=== PATIENT | female | born 1960 | race Caucasian/White ===

== ENCOUNTER 2018-12-11 23:59 | Emergency (ER) | payer SELFPAY ==
[2018-12-12 00:54] LABS: #Basophils 0.1 thou/uL (0.0-0.2); #Eosinphils 0.2 thou/uL (0.0-0.7); #Monocytes 0.4 thou/uL (0.11-0.59); #Neutrophils 4.7 thou/uL (1.40-6.50); %Basophils 0.9 % (0.0-1.0); %Eosinophils 3.4 % (0.0-10.0); %Monocytes 6.7 % (0.0-10.0); %Neutrophils 72.9 % (42.0-75.0); Hemoglobin 12.6 g/dL (12.0-16.0); Mean Corpuscular Hemoglobin 30.8 pg (27.0-31.0); Mean Corpuscular Volume 96.2 fL (78.0-98.0); Mean Platelet Volume 7.9 fL (7.4-10.4); Platelet Count 236 thou/uL (130-400); Red Blood Cell (RBC) Count 4.09 mill/uL (4.20-5.40); White Blood Cell (WBC) Count 6.5 thou/uL (4.8-10.8)
[2018-12-12 01:02] LABS: Prothrombin Time 13.6 SEC (12.0-14.7)
[2018-12-12 01:10] LABS: ALT (SGPT) 27 U/L (8-55); AST (SGOT) 26 U/L (5-34); Albumin 4.1 g/dL (3.5-5.0); Alcohol 265 mg/dL (Less than 10); Alkaline Phosphatase 57 U/L (40-110); Anion Gap 18 mmol/L (10-20); BUN (Urea Nitrogen) 9 mg/dL (9.8-20.1); Bilirubin, Total 0.4 mg/dL (0.2-1.2); Calc. Creatinine Clearance 0 mL/min (70-130); Calcium 8.6 mg/dL (7.8-10.44); Carbon Dioxide 20 mmol/L (22-29); Chloride 94 mmol/L (98-107); Estimated GFR-MDRD 81; Globulin 3.4 g/dL (2.4-3.5); Glucose 125 mg/dL (70-105); Potassium 3.6 mmol/L (3.5-5.1); Protein, Total 7.5 g/dL (6.0-8.3); Sodium 128 mmol/L (136-145)
[2018-12-12] MEDS ORDERED: Adacel (T-DAP) 0.5 ML SYRINGE ONE (02:43)
[2018-12-12] MEDS ORDERED: CEFAZOLIN 1 GM VIAL ONE (03:20)
[2018-12-12] MEDS ORDERED: Sodium Chloride 0.9% 100 ML ONE (03:20)
--- NOTE | 2018-12-12 07:21 | CT ---
PRELIMINARY REPORT/[facility]/EMERGENCY AFTER HOURS PROCEDURE: PROCEDURE INFORMATION: Exam: CT Maxillofacial Without Contrast Exam date and time: 12/12/2018 12:51 AM Clinical history: 58 years old, female; Injury or trauma; Fall; Initial encounter; Blunt trauma (cont usions or hematomas); Maxilla; Injury date: 12/12/2018 TECHNIQUE: Imaging protocol: Computed tomography images of the face without contrast. Radiation optimization: All CT scans at this facility use at least one of these dose optimization anthony hniques: automated exposure control; mA and/or kV adjustment per patient size (includes targeted exam s where dose is matched to clinical indication); or iterative reconstruction. COMPARISON: No relevant prior studies available. FINDINGS: Orbits: Orbital contents appear intact/unremarkable. Sinuses: Very mild mucosal thickening in the inferior left maxillary sinus. Included paranasal sinuses otherwise appear essentially clear. Bones/joints: Mildly displaced fracture of the left side of the nasal bone. No definite acute fracture of the nasal septum. No definite evidence of other acute facial bone fracture. IMPRESSION: 1. Mildly displaced fracture of the left side of the nasal bone. 2. No definite evidence of other acute facial bone fracture. 3. Other findings discussed above. Thank you for allowing us to participate in the care of your patient. Dictated and Authenticated by: Woo Dia MD 12/12/2018 2:36 AM Central Time ([place] & [place]) FINAL REPORT EMERGENCY AFTER HOURS CT FACE WITHOUT CONTRAST: Date: 12/12/18 FINDINGS/IMPRESSION: I agree with the findings and impression given in the preliminary report per [facility] physician. Left mona al bone fracture.
--- NOTE | 2018-12-12 07:23 | CT ---
PRELIMINARY REPORT/[facility]/EMERGENCY AFTER HOURS PROCEDURE: Addendum created by Woo Dia MD on 12/12/2018 2:25 AM Central Time ([place] & [place]) Report of this grant e was discussed with EASTON Parker at 2:24 AM CDT, 12/12/2018. The findings were acknowledged and un derstood. Initial Report created on 12/12/2018 2:20 AM Central Time ([place] & [place]) PROCEDURE INFORMATION: Exam: CT Head without contrast Exam date and time: 12/12/2018 12:56 AM Clinical history: 58 years old, female; Pain and injury or trauma; Fall; Initial encounter; Blunt tra tresa (contusions or hematomas); Headache; Injury date: 12/12/2018; Injury details: Fell off couch TECHNIQUE: Imaging protocol: Computed tomography of the head without contrast. Radiation optimization: All CT scans at this facility use at least one of these dose optimization anthony hniques: automated exposure control; mA and/or kV adjustment per patient size (includes targeted exam s where dose is matched to clinical indication); or iterative reconstruction. COMPARISON: No relevant prior studies available. FINDINGS: Brain: Suspect a very small amount of acute subdural blood layering along the right tentorium. This i s a subtle asymmetric finding, only measuring about 1-2 mm in thickness. Followup may be helpful, as clinically directed. No significant mass effect or midline shift. No other definite acute intracranial hemorrhage. 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 No definite acute infarct by CT. Ventricles: Ventricle size is normal for age. Bones/joints: Suspect an acute left-sided nasal bone fracture. Please see subsequent CT Facial Bone r eport for complete evaluation of the facial bones. No other definite acute skull fracture. Sinuses: Included paranasal sinuses are essentially clear. Mastoid air cells: No significant acute finding. IMPRESSION: 1. Suspect a very small amount of acute subdural blood layering along the right tentorium, details ab ove. 2. No significant mass effect or midline shift. 3. 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 4. Nasal bone fracture, see above. 5. Please see subsequent CT Facial Bone report for complete evaluation of the facial bones. 6. Other findings discussed above. Thank you for allowing us to participate in the care of your patient. Dictated and Authenticated by: Woo Dia MD 12/12/2018 2:20 AM Central Time ([place] & [place]) FINAL REPORT EMERGENCY AFTER HOURS CT BRAIN WITHOUT CONTRAST: FINDINGS/IMPRESSION: I agree with the findings and impression given in the preliminary report per [facility] physician. There is asymmetry on the right aspect of the tentorium. This could represent asymmetric thickening of the te ntorium versus a small amount of subdural blood. A follow-up CT or MRI should be performed.
--- NOTE | 2018-12-12 07:24 | CT ---
PRELIMINARY REPORT/[facility]/EMERGENCY AFTER HOURS PROCEDURE: PROCEDURE INFORMATION: Exam: CT Cervical Spine Without Contrast Exam date and time: 12/12/2018 1:00 AM Clinical history: 58 years old, female; Neck pain; Patient HX: Fell off couch TECHNIQUE: Imaging protocol: Computed tomography images of the cervical spine without contrast. Radiation optimization: All CT scans at this facility use at least one of these dose optimization anthony hniques: automated exposure control; mA and/or kV adjustment per patient size (includes targeted exam s where dose is matched to clinical indication); or iterative reconstruction. COMPARISON: No relevant prior studies available. FINDINGS: Vertebrae: On axial CT images, no definite acute fracture is visible. Sagittal and coronal reconstructions show no fracture or subluxation. Mild to moderate degenerative disc changes and facet joint arthritis at several levels. Discs/Spinal canal/Neural foramina: No definite/significant disc herniation by CT, MRI could be more sensitive if clinically indicated. Lungs: Lung apices appear essentially unremarkable. IMPRESSION: 1. No definite acute fracture or subluxation by CT. 2. Other findings discussed above. Thank you for allowing us to participate in the care of your patient. Dictated and Authenticated by: Woo Dia MD 12/12/2018 2:29 AM Central Time ([place] & [place]) FINAL REPORT EMERGENCY AFTER HOURS CT CERVICAL SPINE WITHOUT CONTRAST: Date: 12/12/18 FINDINGS/IMPRESSION: I agree with the findings and impression given in the preliminary report per [facility] physician. No evide nce of acute osseous abnormality of the cervical spine.
--- NOTE | 2018-12-12 08:03 | RAD ---
AP PELVIS: HISTORY: Fall with injury. FINDINGS: Bony pelvis appears intact. Both hips appear intact. IMPRESSION: No acute abnormality. POS: [facility]
--- NOTE | 2018-12-12 08:09 | RAD ---
PORTABLE CHEST: HISTORY: Fall with injury. FINDINGS: Lung holland appear clear. Heart and mediastinum unremarkable. Osseous structures appear intact. IMPRESSION: No acute abnormality. POS: [facility]
== END 2018-12-12 03:30 | disposition short-term general hospital (02) ==
LOC: NAV ERS 23:59
DX: S06.5X9A Traumatic subdural hemorrhage with loss of consciousness of unspecified duration, initial encounter (principal); I10 Essential (primary) hypertension; W19.XXXA Unspecified fall, initial encounter
CPT/HCPCS: 36415; 70450; 70486; 71045; 72125; 72170; 80053; 80307; 85025; 85610; 90715; J0690; J3490